=== PATIENT | male | born 1965 | race Hispanic/Latino ===

== ENCOUNTER 2025-03-01 05:45 | Emergency (ER) | payer OTHER, SELFPAY ==
[2025-03-01] MEDS ORDERED: Ketorolac Tromethamine 30 MG (1 mL) VIAL ONE (05:57)
[2025-03-01] MEDS ORDERED: Iopamidol 370 76% 100 ML VIAL ONE (09:00)
== END 2025-03-01 07:54 | disposition home or self-care (01) ==
LOC: NAV ERS 05:45
DX: S13.9XXA Sprain of joints and ligaments of unspecified parts of neck, initial encounter (principal); I10 Essential (primary) hypertension; V89.2XXA Person injured in unspecified motor-vehicle accident, traffic, initial encounter; Y93.89 Activity, other specified
CPT/HCPCS: 71260; 72125; 74177; 96374; J1885; Q9967